=== PATIENT | female | born 2000 | race Caucasian/White ===

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

== ENCOUNTER 2022-09-19 17:15 | Emergency (ER) | payer OTHER, SELFPAY ==
--- NOTE | 2022-09-19 17:16 | ED.URI ---
HPI - URI/Sore Throat General Chief Complaint: Upper Respiratory Infection Stated Complaint: Ears and throat Time Seen by Provider: 09/19/22 17:16 Source: patient Mode of arrival: ambulatory Limitations: no limitations History of Present Illness HPI Narrative: Iris is a 22-year-old female patient presenting to the clinic today with complaints of sore throat and ear pain. She reports her left ear has been hurting for a couple weeks and she just developed sore throat over the last 1-2 days. Denies any known fever or chills. Denies any known exposure to anybody with COVID, flu, or strep. MD elicited complaint: sore throat and other (Ear pain) Related Data Allergies Allergy/AdvReac Type Severity Reaction Status Date / Time No Known Allergies Allergy Unknown Verified 09/19/22 17:24 Review of Systems Review of Systems: Pertinent positives per HPI. Patient denies any fever, chills, rash, headache, visual changes, dizziness, cough, shortness of breath, chest pain, palpitations, nausea, vomiting, diarrhea, constipation, abdominal pain, or any urinary issues. 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 There is no relevant family history pertinent to the patient complaint. Exam Narrative: General: Well-developed, well nourished, in no apparent distress Head: Normocephalic, atraumatic Eyes: Pupils equally round and reactive to light bilaterally, EOM intact, sclera and conjunctive clear, no discharge, lids normal Ears: Right TMs intact and clear, left TM intact, red, bulging, ear canals clear, no drainage, grossly hearing normal. Nose: Nares patent, no discharge, no inflammation, no sinus tenderness. Mouth: Oral pharynx red without lesions or masses, good dentition, MMM. Neck: Supple, trachea midline, mild enlargement of anterior cervical nodes, no thyroid masses or goiter palpable. Cardio: Regular rate and rhythm, s1 and s2 normal, no murmur appreciated. Resp: Clear to auscultation bilaterally, no rhonchi, rales, wheezing or rubs Course Course Emergency Course: Portions of this record may have been created with voice recognition software. Level of Care: Express Care Visit Vital Signs Vital signs: Vital signs reviewed MDM - URI/Sore Throat MDM Narrative Medical decision making narrative: At the time of visit patient resting comfortably on the exam table. Differential Diagnosis Differential diagnosis: Likely upper respiratory infection, otitis media, sinusitis, viral infection, bronchitis, influenza, pharyngitis and other (COVID) Discharge Plan Discharge Clinical Impression: Acute left otitis media Pharyngitis Qualifiers: Pharyngitis/tonsillitis etiology: unspecified etiology Qualified Code(s): J02.9 - Acute pharyngitis, unspecified Patient Disposition: Home, Self-Care Condition: Stable Instructions: Antibiotic Form, Pharyngitis (ED), Ear Infection (ED) Additional Instructions: Strep screen was negative in the clinic today. We will send for culture if this comes back positive we will contact you and we may need to add a few mo
[2022-09-19 17:30] VITALS: BP 141/81; PULSE 88; RESP 16; TEMP 36.4; O2SAT 100
== END 2022-09-19 17:38 | disposition home or self-care (01) ==
PROVIDERS: Emergency Provider Nurse Practitioner Family
DX: H66.92 Otitis media, unspecified, left ear (principal); J02.9 Acute pharyngitis, unspecified
CPT/HCPCS: 87081; 87880; 99213; G0463

== ENCOUNTER 2022-10-03 22:53 | Emergency (ER) | payer OTHER, SELFPAY ==
--- NOTE | ~2022-10-03 | US_ITS ---
EXAMINATION: US pelvic complete DATE: 10/04/2022 04:38 INDICATION: Ovarian torsion. TECHNIQUE: Multiple transabdominal sonographic images of the pelvis were obtained. COMPARISON: CT abdomen and pelvis 01/11/2021 FINDINGS: The uterus measures 7.6 x 3.6 x 3.9 cm. There is no free fluid in the pelvis. The endometrial complex measures 2 mm in thickness. The right ovary measures 2.6 x 1.4 x 1.3 cm. The left ovary measures 2.1 x 1.8 x 1.9 cm. There is normal vascular flow in the ovaries. IMPRESSION: 1. Normal pelvis. Reviewed, dictated and finalized at location E. IMPRESSION: 1. Normal pelvis.
[2022-10-03 22:56] VITALS: BP 132/82; PULSE 77; RESP 19; TEMP 36.4; O2SAT 100
--- NOTE | 2022-10-03 23:25 | ED.ABDPAIN ---
HPI - Abdominal Pain General Chief Complaint: Abdominal Pain <Windy Mabry PA-C - Last Filed: 10/04/22 03:18> Stated Complaint: low back pain, lower abdominal pain <Windy Mabry PA-C - Last Filed: 10/04/22 03:18> Time Seen by Provider: 10/03/22 23:10 <Windy Mabry PA-C - Last Filed: 10/04/22 03:18> History of Present Illness HPI narrative: 22-year-old female with a history of asthma and acute appendicitis, s/p appendectomy, and presumed endometriosis reports for evaluation for ovary pain x6 hours. Pt states she started her menstrual period yesterday and is currently bleeding through 1 tampon every 4 hours, states her flow is normal. She reports lower abdominal cramping and back pain consistent with her period cramps but states this is worse. She denies nausea or vomiting, fever, body aches or chills, dysuria, diarrhea. States the cramping is located throughout her suprapubic region, one side is not worse than the other. Last BM was today and normal. She reports her normal vaginal discharge, denies concern for STDs and declines STD testing at this time. She was started on Micronor (progesterone only BC) in April by Dr. Driscoll. States she has had ~4 periods since she started the new BC. Per Dr. Sanchez notes, the patient was supposed to schedule an apt with him July or August to discuss the new BC. Pt states she has yet to make an apt. <Windy Mabry PA-C - Last Filed: 10/04/22 03:18> Related Data Allergies/Adverse Reactions: Allergies Allergy/AdvReac Type Severity Reaction Status Date / Time No Known Allergies Allergy Unknown Verified 10/03/22 23:09 <Windy Mabry PA-C - Last Filed: 10/04/22 03:18> Review of Systems Review of Systems: CONSTITUTIONAL: Denies fever, chills EYES: Denies visual changes, redness, or discharge. ENT: Denies rhinorrhea, congestion, sore throat, or otalgia. CARDIOVASCULAR: Denies chest pain, palpitations, or edema. RESPIRATORY: Denies cough or dyspnea. GASTROINTESTINAL: See HPI GENITOURINARY: Denies dysuria or hematuria. SKIN: Denies rash or itching. MUSCULOSKELETAL: Denies back pain, joint pain, or myalgia. NEUROLOGIC: Denies headache, numbness, dizziness, or weakness. PSYCHIATRIC: Denies anxiety or depression. 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 Patient resting comfortably in exam bed. She is pleasant and conversational. HEAD: Normocephalic NECK: Supple. CHEST: No respiratory distress. Clear to auscultation, no adventitious breath sounds. HEART: Regular rate and rhythm. No murmur heard. Normal peripheral pulses. ABDOMEN: Soft, nontender, normal active bowel sounds. No CVA tenderness. No overlying skin changes. RECYCLING TECHNICIAN: No lesions, rashes or edema to external genitalia, vaginal canal or cervix. Scant amount of blood in vaginal vault. Cervical os closed.
[2022-10-03] MEDS: KETOROLAC 30 MG/ML VIAL (*BKC) IV PUSH (23:38)
[2022-10-03] MEDS: SODIUM CHLORIDE 0.9% IV 1,000 ML 999 ML IV CONT (23:38)
[2022-10-03 23:49] LABS: Basophils Percent Auto 0.6 % (0.2-1.2); Eosinophils Absolute Auto 0.2 K/mm3 (0-0.3); Eosinophils Percent Auto 2.5 % (0-4.4); Hematocrit 34.8 % (37.0-47.0); Hemoglobin 10.9 g/dL (12.0-15.0); Immature Granulocyte Absolute 0.01 K/mm3 (0.00-0.031); Immature Granulocyte Percent A 0.1 % (0-0.5); Lymphocytes Percent Auto 44.9 % (18.3-44.2); Mean Corpuscular HGB Conc 31.3 g/dl (32-36); Mean Corpuscular Hemoglobin 23.7 pg (26-34); Mean Corpuscular Volume 75.7 fl (80-100); Mean Platelet Volume 10.4 fl (7.4-10.4); Monocytes Absolute Auto 0.7 K/mm3 (0.1-0.6); Monocytes Percent Auto 10.8 % (2.6-8.5); Neutrophils Absolute Auto 2.7 K/mm3 (1.3-6.7); Neutrophils Percent Auto 41.1 % (45.5-73.1); Platelet Count Result 295 k/mm3 (150-375); Red Cell Distribution Width 16.3 % (11.5-14.5); White Blood Count 6.7 K/mm3 (4.5-10.0)
[2022-10-03 23:53] LABS: Appearance Urine Clear (Clear); Bacteria Urine None Seen /hpf; Bilirubin Urine Negative (Negative); Blood Urine Trace (Negative); Color Urine Yellow (Yellow); Glucose Urine UA Negative (Negative); Ketones Urine Negative (Negative); Leukocyte Esterase Ur Negative LEU/UL (Negative); Nitrate Urine Negative (Negative); Non Pathogenic Casts 0-2; Protein Urine Negative (Negative); RBC Urine 0-2 /hpf (0-2); Specific Grav Ur 1.027 (1.001-1.035); Squamous Epithelial Cell Urine Occasional /hpf (Few); WBC Urine 0-5 /hpf; pH Urine 5.5 (5.0-9.0)
[2022-10-03 23:58] LABS: Add Urine Microscopic? YES
[2022-10-04 00:09] LABS: Alanine Aminotransferase 23 U/L (6-35); Albumin Level 4.1 g/dL (3.5-5.1); Alkaline Phosphatase 61 U/L (38-126); Anion Gap 5 mmol/L (8-16); Aspartate Amino Transferase 29 U/L (14-36); Bilirubin,Total 0.2 mg/dL (0.2-1.3); Blood Urea Nitrogen 8 mg/dL (7-17); Calcium 8.6 mg/dL (8.4-10.2); Carbon Dioxide 28 mmol/L (22-30); Chloride 106 mmol/L (98-107); Estimated CRCL calculation 123 ml/min; Estimated Glomerular Filt Rate > 60; Glucose 92 mg/dL (65-110); Potassium 3.7 mmol/L (3.4-5.0); Sodium 139 mmol/L (137-145)
[2022-10-04 02:56] VITALS: BP 130/74; PULSE 74; RESP 15; O2SAT 100
[2022-10-04 05:14] VITALS: BP 136/80; PULSE 70; RESP 14; O2SAT 100
== END 2022-10-04 05:15 | disposition home or self-care (01) ==
PROVIDERS: Emergency Provider Family Medicine
DX: N94.6 Dysmenorrhea, unspecified (principal)
CPT/HCPCS: 36415; 76856; 80053; 81001; 81025; 85025; 96361; 96374; 99284; J1885; J7030

== ENCOUNTER 2022-10-23 14:59 | Outpatient (CLI) | payer OTHER, SELFPAY ==
[2022-10-23 16:39] LABS: Hematocrit 38.4 % (37.0-47.0); Hemoglobin 11.8 g/dL (12.0-15.0); Mean Corpuscular HGB Conc 30.7 g/dl (32-36); Mean Corpuscular Hemoglobin 23.6 pg (26-34); Mean Corpuscular Volume 76.6 fl (80-100); Mean Platelet Volume 10.8 fl (7.4-10.4); Platelet Count Result 324 k/mm3 (150-375); Red Blood Count 5.01 M/mm3 (4.2-5.4); Red Cell Distribution Width 16.5 % (11.5-14.5); White Blood Count 7.3 K/mm3 (4.5-10.0)
[2022-10-23 16:44] LABS: Alanine Aminotransferase 26 U/L (6-35); Albumin Level 4.7 g/dL (3.5-5.1); Alkaline Phosphatase 72 U/L (38-126); Anion Gap 10 mmol/L (8-16); Aspartate Amino Transferase 33 U/L (14-36); Bilirubin,Total 0.2 mg/dL (0.2-1.3); Blood Urea Nitrogen 12 mg/dL (7-17); CRP 0.5 mg/dL (<1.0); Calcium 9.8 mg/dL (8.4-10.2); Carbon Dioxide 25 mmol/L (22-30); Chloride 104 mmol/L (98-107); Estimated Glomerular Filt Rate > 60; Glucose 93 mg/dL (65-110); Potassium 3.8 mmol/L (3.4-5.0); Sodium 139 mmol/L (137-145)
[2022-10-23 17:11] LABS: Iron 27 ug/dL (37-170)
[2022-10-23 17:20] LABS: Percent Iron Saturation 5 % (20-50)
[2022-10-23 17:47] LABS: Ferritin 5.18 ng/mL (6.24-137); Folic Acid 5.2 ng/mL (2.76->20)
[2022-10-23 18:44] LABS: Erythrocyte Sedimentation Rate 6 mm/hr (0-20)
[2022-10-28 19:24] LABS: Tissue Transglutaminase IgA Ab 8.7 U/mL (<15.0)
[2022-10-28 21:22] LABS: Tissue Transglutaminase IgG Ab <1.0 U/mL (<15.0)
[2022-10-29 12:10] LABS: Endomysial Ab (IgA) Screen Negative (Negative)
== END 2022-10-23 15:00 | disposition home or self-care (01) ==
LOC: ANHLAB 15:00
PROVIDERS: PCP Obstetrics & Gynecology; Visit Provider Nurse Practitioner
DX: D3A.8 Other benign neuroendocrine tumors (principal); D64.9 Anemia, unspecified; K90.0 Celiac disease; R10.33 Periumbilical pain; R14.0 Abdominal distension (gaseous); R93.3 Abnormal findings on diagnostic imaging of other parts of digestive tract
CPT/HCPCS: 36415; 80053; 82607; 82728; 82746; 83540; 83550; 84443; 85027; 85652; 86140; 86255; 86316; 86364

== ENCOUNTER 2022-11-11 08:55 | Outpatient (CLI) | payer OTHER, SELFPAY ==
--- NOTE | ~2022-11-11 | CT_ITS ---
EXAMINATION: CT abdomen pelvis w con INDICATION: History of neuroendocrine tumor of the appendix TECHNIQUE: Computed tomographic images of the abdomen and pelvis were obtained after the administrati on of 100 cc of Omnipaque 350 intravenous contrast. The dose-length product (DLP) was 230.65 mGy-cm. Automated exposure control and iterative reconstruction technique were employed. COMPARISON: 01/11/2021 FINDINGS: The lung bases are clear. The heart size is normal. The liver, spleen, pancreas, gallbladde r, and adrenal glands are normal. The kidneys are unremarkable. There are changes of interval appende ctomy. No pathologically enlarged abdominal or pelvic lymph nodes are identified. A few prominent rig ht lower quadrant lymph nodes are subcentimeter in size and unchanged in the near two year interval s allie the comparison examination. No free intraperitoneal gas or evidence of bowel obstruction. There is a small volume of likely physiologic free fluid in the pelvis. There is a 3 cm cyst of the left ov bernard. A large volume of colonic stool is present. IMPRESSION: 1. No evidence of metastatic disease. Reviewed, dictated and finalized at location A.
== END 2022-11-11 08:56 | disposition home or self-care (01) ==
PROVIDERS: PCP Family Medicine; Visit Provider Nurse Practitioner
DX: D3A.8 Other benign neuroendocrine tumors (principal); R10.33 Periumbilical pain; R14.0 Abdominal distension (gaseous)
CPT/HCPCS: 74177; Q9967

== ENCOUNTER 2022-11-27 08:00 | Outpatient (NON) | payer OTHER, SELFPAY | END 2022-11-27 08:01 | disposition home or self-care (01) | PROVIDERS: PCP Family Medicine; Visit Provider Internal Medicine Gastroenterology | DX: R10.33 Periumbilical pain (principal) | CPT/HCPCS: 88305 ==

== ENCOUNTER 2022-11-27 08:05 | Day surgery (SDC) | payer OTHER, SELFPAY ==
[2022-10-28 09:13] VITALS: BMI 20.6
[2022-11-13 11:51] VITALS: BMI 20.7
--- NOTE | 2022-11-26 12:13 | PM.HPGS ---
History of Present Illness History of Present Illness Consent: Risks, benefits, and alternatives have been discussed and questions answered. Patient agrees to proceed with procedure. Chief complaint: ABD Distention(Gaseous) Periumbilical Pain Narrative: Iris Dyson is a 22 year old female who has been dealing with chronic periumbilical abdominal pain for 6-7 years that was off and on.? She states that she just dealt with it and tried eliminating lactose and taking Lactaid with no improvement.? She eventually had a CT scan of the abdomen and pelvis in the found to have acute appendicitis on CT imaging here at [facility]-she underwent a laparoscopic appendectomy with Dr. 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 She was referred to Oncology, Dr. Riddle.? At that time she had a PET scan that showed no metastasis and she states he told her to have a right hemicolectomy but she declined.? She continues to deal with periumbilical abdominal pain 4 times per week with no associated with eating or bowel habits.? This pain can last all day-it does not go away after bowel movements or worsen with eating.? she was told 2 years ago she had celiac disease by her transport technician based off of blood work and has been on a strict gluten free diet since then.? Never had an EGD to confirm diagnosis.? She does complain of chronic loose stools majority of the time but sometimes constipation. Her weight is stable Review of Systems Review of Systems: All systems reviewed & are unremarkable except as noted in HPI and below PMFSH Past Medical History Medical History Asthma Bloating Celiac disease Chronic diarrhea SIVAKUMAR (iron deficiency anemia) Normocytic anemia Periumbilical pain Surgical History Surgical History History of appendectomy 01/11/21 Social History Social History Smoking status: Never smoker Alcohol intake: never Substance use: never Substance use type: does not use Lack of Transportation: No Lack of Food: Never True Current Housing: I Have Housing Concerned About Future Housing: No Difficulty Paying Gas/Electric Bills: No Difficulty Paying for Meds: No Currently Unemployed: No Education: High School Diploma/GED Difficulty w/ Childcare or Family Care: No Living arrangements: with family Additional living arrangements comments: Occupation/Education: occupation 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 Gender identity (if verbalized by the patient): Female Sexual Orientation (if Verbalized by the Patient): Straight or Heterosexual Spiritual care concerns: No Meds Home Medications and Allergies Home Medications Medication Instructions Recorded Confirmed Type norethindrone (contraceptive) 0.35 0.35 mg PO DAILY #84 tabs 04/28/22 11/27/22 Rx mg tablet (Ortho Micronor) ibuprofen 600 mg tablet 600 mg PO TID PRN pain #30 tabs 10/04/22 11/27/22 Rx rifaximin 550 mg tablet (Xifaxan) 550 mg PO TID 14 days #42 tabs 10/23/22 11/27/22 Rx ferrous sulfate 325 mg (65 mg 325 mg PO DAILY #30 tabs 10/24/22 11/27/22 Rx iron) tablet Allergies Allergy/AdvReac Type Severity Reaction Status Date / Time No Known Allergies Allergy Unknown Verified 11/27/22 08:25 Exam Const: General: alert Orientation/consciousness: patient oriented x3 Resp: Auscultation: clear to auscultation bilaterally Cardio: Rhythm: regular rhythm GI: GI Palp: Yes Soft to palpation and No Tenderness to palpation present (GI) Neuro: General: patient oriented x3 Assessment and Plan Assessment and plan (1) Periumbilical pain: Code(s): R10.33 - Periumbilical pain Status: Acute Assessment and Plan: EGD with possible biopsy or dilatation or cautery. (2) Celiac disease: Code(s): K90.0 - C
--- NOTE | 2022-11-27 07:25 | WPDANESEPPF ---
Anes - Initial Pre Proc Eval Procedure: Operation Date: 11/27/22 10:00 Proposed Procedures p Esophagogastroduodenoscopy - Rivera Peralta MD s Diagnostic Colonoscopy - Rivera Peralta MD Date/Time: 11/27/22 07:25 Surgeon: Rivera Peralta MD Pre Op Diagnosis: ABD Distention(Gaseous) Periumbilical Pain Patient Data Age: 22 Gender: F Height: 1.6 m Weight: 53 kg Allergies Allergy/AdvReac Type Severity Reaction Status Date / Time No Known Allergies Allergy Unknown Verified 11/27/22 08:25 Home Medications Medication Instructions Recorded Confirmed Type norethindrone (contraceptive) 0.35 0.35 mg PO DAILY #84 tabs 04/28/22 11/27/22 Rx mg tablet (Ortho Micronor) ibuprofen 600 mg tablet 600 mg PO TID PRN pain #30 tabs 10/04/22 11/27/22 Rx rifaximin 550 mg tablet (Xifaxan) 550 mg PO TID 14 days #42 tabs 10/23/22 11/27/22 Rx ferrous sulfate 325 mg (65 mg 325 mg PO DAILY #30 tabs 10/24/22 11/27/22 Rx iron) tablet Patient hx anesthesia problems: none Family hx anesthesia problems: none Results Review: All pre-operative results and documents have been reviewed as part of the pre-operative evaluation. [facility] Past Medical History Medical History Asthma Bloating Celiac disease Chronic diarrhea SIVAKUMAR (iron deficiency anemia) Normocytic anemia Periumbilical pain Surgical History Surgical History History of appendectomy 01/11/21 Social History Social History Smoking status: Never smoker Alcohol intake: never Substance use: never Substance use type: does not use Lack of Transportation: No Lack of Food: Never True Current Housing: I Have Housing Concerned About Future Housing: No Difficulty Paying Gas/Electric Bills: No Difficulty Paying for Meds: No Currently Unemployed: No Education: High School Diploma/GED Difficulty w/ Childcare or Family Care: No Living arrangements: with family Additional living arrangements comments: Occupation/Education: occupation 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 Gender identity (if verbalized by the patient): Female Sexual Orientation (if Verbalized by the Patient): Straight or Heterosexual Spiritual care concerns: No Anes - Eval Final PreProcedure Day of Procedure 11/27/22 07:25 Patient weight: normal Heart: regular rate and rhythm Lungs: clear to auscultation and normal air movement Airway: Mallampati scale class II Neurological: alert and oriented Last oral intake: >/= 8 hours ASA classification: II Emergent: no Anesthetic plan: proceed Anesthesia type and monitoring: general GIVS and standard monitoring Results Review: All pre-operative results and documents have been reviewed as part of the pre-operative evaluation. Informed Consent: The patient's anesthetic plan and its attendant risks and benefits were discussed with the patient/family/POA. Questions were solicited and answers provided to the satisfaction of the patient/family/POA.
[2022-11-27 08:25] VITALS: BP 125/79; PULSE 91; RESP 16; TEMP 36.8; O2SAT 100
[2022-11-27] MEDS: LACTATED RINGERS 1,000 ML 150 ML IV CONT (08:36)
[2022-11-27 09:48] VITALS: BP 93/50; PULSE 72; RESP 20; O2SAT 100
[2022-11-27 09:58] VITALS: BP 107/59; PULSE 74; RESP 18; O2SAT 100
[2022-11-27 10:08] VITALS: BP 107/59; PULSE 79; RESP 20; O2SAT 100
[2022-11-27 10:18] VITALS: BP 105/74; PULSE 63; RESP 20; O2SAT 100
--- NOTE | 2022-11-27 13:08 | WPDANESPN ---
Anes - Prog Note Post-Op Date/Time: 11/27/22 13:08 Cardiovascular status: normal Respiratory status: normal Airway patency: baseline Mental status: baseline Post-Op hydration status: normal Vital Signs: Last Vital Signs Temp 36.8 C 11/27/22 08:25 Pulse 63 11/27/22 10:18 Resp 20 11/27/22 10:18 BP 105/74 11/27/22 10:18 Pulse Ox 100 11/27/22 10:18 O2 Del Method Room Air 11/27/22 10:18 Pain Score (VAS): 0 I/O: Intake & Output 11/26/22 11/27/22 11/27/22 23:59 07:59 15:59 Intake Total 700 Balance 700 Post-procedural complaints: none Patient Feedback: Patient satisfied with anesthetic care. Other Findings: Patient vital signs back to baseline. Patient denies nausea and vomiting. Patient's pain under control. Patient OK for discharge.
== END 2022-11-27 10:48 | disposition home or self-care (01) ==
PROVIDERS: PCP Family Medicine; Visit Provider Internal Medicine Gastroenterology
PROC: 0DJ08ZZ Inspection of Upper Intestinal Tract, Via Natural or Artificial Opening Endoscopic (ICD-10-PCS; CPT 43235; principal; 2022-11-27 10:00)
PROC: 0DJD8ZZ Inspection of Lower Intestinal Tract, Via Natural or Artificial Opening Endoscopic (ICD-10-PCS; CPT 45378; 2022-11-27 10:00)
DX: R10.33 Periumbilical pain (principal); Z12.11 Encounter for screening for malignant neoplasm of colon; K21.9 Gastro-esophageal reflux disease without esophagitis
CPT/HCPCS: 45380; 43239

== ENCOUNTER 2022-12-04 16:40 | Outpatient (CLI) | payer OTHER, SELFPAY | END 2022-12-04 16:41 | disposition home or self-care (01) | PROVIDERS: PCP Family Medicine; Visit Provider Nurse Practitioner | DX: D50.9 Iron deficiency anemia, unspecified (principal); R14.0 Abdominal distension (gaseous); R10.33 Periumbilical pain | CPT/HCPCS: 36415; 86003 ==